=== PATIENT | female | born 1975 | race Caucasian/White ===

== ENCOUNTER 2017-05-16 19:07 | Observation (INO) | payer BC, OTHER ==
[~2017-05-16] VITALS: Ht 175.3 cm; Wt 93.0 kg
[2017-05-16 19:08] VITALS: BP 165/93; PULSE 88; RESP 16; TEMP 97.7; O2SAT 100
[2017-05-16] MEDS ORDERED: ZANT150T2 PO (20:38)
[2017-05-16] MEDS ORDERED: SODIUM CHLORIDE 0.9% FLUSH 10 ML FLUSH IVF PRN (20:45)
[2017-05-16 20:49] VITALS: BP 138/89; PULSE 60; RESP 18; O2SAT 99
--- NOTE | 2017-05-16 20:50 | PD ---
HPI Chief Complaint: Chest Pain Time Seen by Provider: 20:32 Travel History International Travel<30 days: No Contact w/Intl Traveler<30days: No Traveled to known affect area: No History of Present Illness HPI Patient is a 41-year-old female presenting to emergency for evaluation of chest pain. Patient states it has been intermittent for the last several months, normally occurring once or twice a week however for the last week or so it has been 3-4 times a day. She reports the pain lasts for 5 minutes at a time, radiates across her anterior chest wall and occasionally feels pressure-like, sometimes shooting in nature. Patient reports her pain is at 2 out of 10 currently. She also reports that this evening at approximately 630 she had pain that started in her shoulders, radiating up her neck and into her head causing a dull headache. This caused her to feel dizzy. She no longer feels dizzy, she denies any current shortness of breath, abdominal pain, nausea, vomiting, fever, chills. She does report a history of indigestion and has been taking [id number] antacids regularly. Patient denies any significant family history of cardiac disease. [facility] Past Medical History Medical History: Denies Significant Hx Tetanus Vaccination: Unknown Influenza Vaccination: No ?: Not LMP: 05/09/17 Past Surgical History Section: Yes Social History Alcohol Use: No Tobacco Use: No Substance Use: No Allergies-Medications (Allergen,Severity, Reaction): Coded Allergies: acetaminophen (Verified Allergy, Severe, 05/16/17) oxycodone (Verified Allergy, Severe, 05/16/17) Reported Meds & Prescriptions Reported Meds & Active Scripts Active Reported Zantac (Ranitidine HCl) 150 Mg Tab 150 Mg PO BID Review of Systems Except as stated in HPI: all other systems reviewed are Neg General / Constitutional: No: Fever, Chills Eyes: No: Blurred Vision HENT: Positive: Headaches, Neck Pain Cardiovascular: Positive: Chest Pain or Discomfort, No: Dyspnea on exertion, Edema Respiratory: No: Cough, Shortness of Breath Gastrointestinal: Positive: Indigestion, No: Nausea, Vomiting, Abdominal Pain Musculoskeletal: Positive: Myalgias Neurologic: No: Weakness, Dizziness, Focal Abnormalities Physical Exam Narrative GENERAL: Overweight, well-developed, alert female. Presenting in no acute distress. SKIN: Warm and dry. HEAD: Atraumatic. Normocephalic. EYES: Pupils equal and round. No scleral icterus. No injection or drainage. ENT: No nasal bleeding or discharge. Mucous membranes pink and moist. NECK: Trachea midline. No JVD. Tenderness to palpation paraspinal musculature and cervical region. No spinal tenderness or step-off noted. CARDIOVASCULAR: Regular rate and rhythm. RESPIRATORY: No accessory muscle use. Clear to auscultation. Breath sounds equal bilaterally. GASTROINTESTINAL: Abdomen soft, non-tender, nondistended. Hepatic and splenic margins not palpable. MUSCULOSKELETAL: Extremities without clubbing, cyanosis, or edema. No obvious deformities. NEUROLOGICAL: Awake and alert. No obvious cranial nerve deficits. Motor grossly within normal limits. Five out of 5 muscle strength in the arms and legs. Normal speech. PSYCHIATRIC: Appropriate mood and affect; insight and judgment normal. Data Data Last Documented VS Vital Signs Date Time Temp Pulse Resp B/P (MAP) Pulse Ox O2 Delivery O2 Flow Rate FiO2 05/16/17 21:21 98 Room Air 05/16/17 20:51 05/16/17 20:49 60 18 05/16/17 19:08 97.7 Orders Orders Electrocardiogram (05/16/17 20:39) Ckmb (Isoenzyme) Profile (05/16/17 20:39) Complete Blood Count With Diff (05/16/17 20:39) Comprehensive Metabolic Panel (05/16/17 20:39) Magnesium (Mg) (05/16/17 20:39) Prothrombin Time / Inr (Pt) (05/16/17 20:39) Act Partial Throm Time (Ptt) (05/16/17 20:39) Troponin I (05/16/17 20:39) Lipase (05/16/17 20:39) Chest, Single Ap (05/16/17 20:39) Ecg Monitoring (05/16/17 20:39) Bilateral Bp Monitoring (05/16/17 20:39) Iv Access Insert/Monitor (05/16/17 20:39) Oximetry (05/16/17 20:39) Oxygen Administration (05/16/17 20:39) Sodium Chloride 0.9% Flush (Ns Flush) (05/16/17 20:45) Pantoprazole Inj (Protonix Inj) (05/16/17 22:00) Al-Mag Hy-Si 40-40-4 Mg/Ml Liq (Mag-Al P (05/16/17 22:00) Lidocaine 2% Viscous (Xylocaine 2% Visco (05/16/17 22:00) Admit Order (Ed Use Only) (05/16/17 21:56) Activity Bed Rest With Brp (05/16/17 21:56) Vital Signs (Adult) Q4H (05/16/17 21:56) Cardiac Rhythm .As Directed (05/16/17 21:56) Notify Dr: Other .PRN (05/16/17 21:56) Notify Dr. Parameters (05/16/17 21:56) Resp Oxygen Nasal Cannula (05/16/17 ) Diet Npo (05/17/17 Breakfast) Ckmb (Isoenzyme) Profile (05/16/17 21:56) Ckmb (Isoenzyme) Profile (05/17/17 00:56) Troponin I (05/16/17 21:56) Troponin I (05/17/17 00:56) Electrocardiogram (05/16/17 21:56) Electrocardiogram (05/17/17 00:56) ^ Obtain (05/16/17 21:56) Ondansetron Inj (Zofran Inj) (05/16/17 22:00) Pantoprazole (Protonix) (05/17/17 09:00) Nitroglycerin Sl (Nitrostat Sl) (05/16/17 22:00) Hot Box Spotter / Telemetry RODOLFO.[id number] (05/16/17 21:56) Labs Laboratory Tests Test 05/16/17 21:00 White Blood Count 9.0 TH/MM3 Red Blood Count 4.80 MIL/MM3 Hemoglobin 10.2 GM/DL Hematocrit 31.6 % Mean Corpuscular Volume 65.8 FL Mean Corpuscular Hemoglobin 21.3 PG Mean Corpuscular Hemoglobin Concent 32.3 % Red Cell Distribution Width 15.0 % Platelet Count 297 TH/MM3 Mean Platelet Volume 7.6 FL Neutrophils (%) (Auto) 62.1 % Lymphocytes (%) (Auto) 26.6 % Monocytes (%) (Auto) 8.1 % Eosinophils (%) (Auto) 1.9 % Basophils (%) (Auto) 1.3 % Neutrophils # (Auto) 5.6 TH/MM3 Lymphocytes # (Auto) 2.4 TH/MM3 Monocytes # (Auto) 0.7 TH/MM3 Eosinophils # (Auto) 0.2 TH/MM3 Basophils # (Auto) 0.1 TH/MM3 CBC Comment DIFF FINAL Differential Comment Prothrombin Time 10.8 SEC Prothromb Time International Ratio 1.1 RATIO Activated Partial Thromboplast Time 24.9 SEC Blood Urea Nitrogen 12 MG/DL Creatinine 0.99 MG/DL Random Glucose 90 MG/DL Total Protein 7.6 GM/DL Albumin 3.9 GM/DL Calcium Level 9.6 MG/DL Magnesium Level 2.3 MG/DL Alkaline Phosphatase 96 U/L Aspartate Amino Transf (AST/SGOT) 11 U/L Alanine Aminotransferase (ALT/SGPT) 21 U/L Total Bilirubin 0.3 MG/DL Sodium Level 138 MEQ/L Potassium Level 4.2 MEQ/L Chloride Level 101 MEQ/L Carbon Dioxide Level 30.3 MEQ/L Anion Gap 7 MEQ/L Estimat Glomerular Filtration Rate 61 ML/MIN Total Creatine Kinase 67 U/L Troponin I LESS THAN 0.02 NG/ML Lipase 131 U/L MDM Medical Decision Making Medical Screen Exam Complete: Yes Emergency Medical Condition: Yes Interpretation(s) Vital Signs Date Time Temp Pulse Resp B/P (MAP) Pulse Ox O2 Delivery O2 Flow Rate FiO2 05/16/17 19:08 97.7 88 16 165/93 (117) 100 Room Air Differential Diagnosis acs vs usa vs gerd vs other Narrative Course Patient is a 41-year-old female presented to the emergency room for evaluation of chest pain which has been ongoing for several months however has been increasing in frequency for the last 2 weeks. Patient was slightly hypertensive on arrival, labs and imaging ordered and pending. Initial EKG shows sinus bradycardia with a rate of 57, this was reviewed by my attending physician. Labs reviewed, there are no acute abnormalities identified. Chest x -ray which is read by the radiologist shows no acute disease. Patient's symptoms may likely be GI in nature however a cardiac workup is reasonable. Patient is agreeable to observation status. Admit orders placed. Diagnosis Primary Impression: Chest pain Qualified Codes: R07.9 - Chest pain, unspecified Admitting Information Admitting Physician Requests: Observation Condition: Stable Julee Bermudez May 16, 2017 20:50
[2017-05-16 20:51] VITALS: O2SAT 99
--- NOTE | 2017-05-16 21:00 | RADRPT ---
EXAM DATE/TIME: 05/16/2017 20:48 [facility] COMPARISON: No previous studies available for comparison. INDICATIONS : Chest pain and shortness of breath. MEDICAL HISTORY : None. SURGICAL HISTORY : None. ENCOUNTER: Initial ACUITY: 1 month PAIN SCORE: 9/10 LOCATION: chest FINDINGS: A single view of the chest demonstrates the lungs to be symmetrically aerated without evidence of mas s, infiltrate or effusion. The cardiomediastinal contours are unremarkable. Osseous structures are intact. CONCLUSION: Normal examination for a patient of this age. Luis Holm MD on May 16, 2017 at 20:58 Board Certified Radiologist. This report was verified electronically.
[2017-05-16 21:29] LABS: AUTOMATED NEUTROPHIL # 5.6 TH/MM3 (1.8-7.7); BASOPHIL # 0.1 TH/MM3 (0-0.2); BASOPHIL % 1.3 % (0.0-2.0); EOSINOPHIL # 0.2 TH/MM3 (0-0.4); EOSINOPHIL % 1.9 % (0.0-4.0); HEMATOCRIT 31.6 % (35.0-46.0); HEMOGLOBIN 10.2 GM/DL (11.6-15.3); LYMPH % 26.6 % (9.0-44.0); LYMPHOCYTE # 2.4 TH/MM3 (1.0-4.8); MEAN CELL VOLUME 65.8 FL (80.0-100.0); MEAN CORPUSCULAR HEMOGLOBIN 21.3 PG (27.0-34.0); MEAN CORPUSCULAR HGB CONC 32.3 % (32.0-36.0); MEAN PLATELET VOLUME 7.6 FL (7.0-11.0); MONO % 8.1 % (0.0-8.0); MONOCYTE # 0.7 TH/MM3 (0-0.9); NEUT % 62.1 % (16.0-70.0); PLATELET COUNT 297 TH/MM3 (150-450)
[2017-05-16 21:33] LABS: INTERNATIONAL NORMALIZED RATIO 1.1 RATIO; PROTHROMBIN TIME - PATIENT 10.8 SEC (9.8-11.6)
[2017-05-16 21:43] LABS: ALBUMIN 3.9 GM/DL (3.4-5.0); AST (GOT) 11 U/L (15-37); BICARBONATE 30.3 MEQ/L (21.0-32.0); BLOOD UREA NITROGEN 12 MG/DL (7-18); CALCIUM 9.6 MG/DL (8.5-10.1); CHLORIDE 101 MEQ/L (98-107); CREATININE 0.99 MG/DL (0.50-1.00); GLOMERULAR FILTRATION RATE 61 ML/MIN (>89); GLUCOSE,RANDOM 90 MG/DL (74-106); MAGNESIUM 2.3 MG/DL (1.5-2.5); SODIUM (NA) 138 MEQ/L (136-145)
[2017-05-16 21:44] LABS: ALT (GPT) 21 U/L (10-53)
[2017-05-16 21:48] LABS: ALKALINE PHOSPHATASE 96 U/L (45-117); TOTAL BILIRUBIN ADULT 0.3 MG/DL (0.2-1.0); TOTAL PROTEIN 7.6 GM/DL (6.4-8.2); TROPONIN I LESS THAN 0.02 NG/ML (0.02-0.05)
[2017-05-16] MEDS ORDERED: LIDOCAINE VISCOUS 2% SOLN 15 ML UDC PO ONE (22:00)
[2017-05-16] MEDS ORDERED: ONDANSETRON HCL 4 MG/2 ML VIAL IV PUSH PRN (22:00)
[2017-05-16] MEDS ORDERED: ALUMINUM/MAGNESIUM/SIMETH 30 ML CUP PO ONE (22:00)
[2017-05-16] MEDS ORDERED: PANTOPRAZOLE SODIUM 40 MG VIAL IVP ONE (22:00)
[2017-05-16] MEDS ORDERED: NITROGLYCERIN 0.4 MG SL 25 TABS/BTL SL PRN (22:00)
[2017-05-16 22:14] VITALS: BP 159/80; PULSE 68; RESP 18; O2SAT 98
[2017-05-16 23:30] VITALS: PULSE 62
[2017-05-17] VITALS: BP 125/72; PULSE 67; RESP 20; TEMP 96.2; O2SAT 97
[2017-05-17 01:03] LABS: TROPONIN I LESS THAN 0.02 NG/ML (0.02-0.05)
[2017-05-17 04:00] LABS: TROPONIN I LESS THAN 0.02 NG/ML (0.02-0.05)
[2017-05-17] MEDS ORDERED: ONDANSETRON HCL 4 MG/2 ML VIAL IV PUSH PRN (07:45)
[2017-05-17 07:51] VITALS: BP 121/77; PULSE 57; RESP 18; TEMP 97.4; O2SAT 96
--- NOTE | 2017-05-17 08:48 | PD.CARD.PN ---
Subjective Subjective Remarks Patient seen and evaluated with nurse practitioner. 41-year-old lady complaining of months of epigastric and chest discomfort normally occurring 2 or 3 times a week recently increasing to 3 or 4 times a day. The pain is in the left upper chest normally stabbing but occasionally squeezing radiating to the mid sternum and on several occasions to the shoulder and neck. Severity has been as much as 8 out of 10, normally lasts for about 5 minutes, has no precipitating or relieving factors and no associated symptoms. She has a long history of indigestion which has not been evaluated. Objective Medications Current Medications Medications (Trade) Dose Ordered Sig/David Route Start Time Stop Time Status Last Admin (NS Flush) 2 ml UNSCH PRN IVF 05/16/17 20:45 (Protonix) 40 mg DAILY PO 05/17/17 09:00 (Nitrostat Sl) 0.4 mg Q5M PRN SL 05/16/17 22:00 (NS Flush) 2 ml BID IV FLUSH 05/17/17 09:00 (Zofran Inj) 4 mg Q6H PRN IV PUSH 05/17/17 07:45 (Aspirin) 325 mg DAILY PO 05/17/17 09:00 Vital Signs / I&O Vital Signs Date Time Temp Pulse Resp B/P (MAP) Pulse Ox O2 Delivery O2 Flow Rate FiO2 05/17/17 07:51 97.4 57 18 121/77 (92) 96 05/17/17 00:00 96.2 67 20 125/72 (89) 97 05/16/17 23:30 62 05/16/17 22:14 68 18 159/80 (106) 98 Room Air 05/16/17 21:21 98 Room Air 05/16/17 20:51 99 Room Air 05/16/17 20:49 60 18 138/89 (105) 99 Room Air 05/16/17 19:08 97.7 88 16 165/93 (117) 100 Room Air Physical Exam GENERAL: Mildly obese heavily tattooed young lady in no acute distress SKIN: Warm and dry. HEAD: Atraumatic. Normocephalic. EYES: Pupils equal and round. No scleral icterus. No injection or drainage. ENT: No nasal bleeding or discharge. Mucous membranes pink and moist. NECK: Trachea midline. No JVD. CARDIOVASCULAR: Regular rate and rhythm. RESPIRATORY: No accessory muscle use. Clear to auscultation. Breath sounds equal bilaterally. GASTROINTESTINAL: Abdomen soft, non-tender, nondistended. Hepatic and splenic margins not palpable. MUSCULOSKELETAL: Extremities without clubbing, cyanosis, or edema. No obvious deformities. NEUROLOGICAL: Awake and alert. No obvious cranial nerve deficits. Motor grossly within normal limits. Five out of 5 muscle strength in the arms and legs. Normal speech. PSYCHIATRIC: Appropriate mood and affect; insight and judgment normal. Laboratory Laboratory Tests Test 05/16/17 21:00 05/17/17 00:05 05/17/17 03:04 White Blood Count 9.0 TH/MM3 Red Blood Count 4.80 MIL/MM3 Hemoglobin 10.2 GM/DL Hematocrit 31.6 % Mean Corpuscular Volume 65.8 FL Mean Corpuscular Hemoglobin 21.3 PG Mean Corpuscular Hemoglobin Concent 32.3 % Red Cell Distribution Width 15.0 % Platelet Count 297 TH/MM3 Mean Platelet Volume 7.6 FL Neutrophils (%) (Auto) 62.1 % Lymphocytes (%) (Auto) 26.6 % Monocytes (%) (Auto) 8.1 % Eosinophils (%) (Auto) 1.9 % Basophils (%) (Auto) 1.3 % Neutrophils # (Auto) 5.6 TH/MM3 Lymphocytes # (Auto) 2.4 TH/MM3 Monocytes # (Auto) 0.7 TH/MM3 Eosinophils # (Auto) 0.2 TH/MM3 Basophils # (Auto) 0.1 TH/MM3 CBC Comment DIFF FINAL Differential Comment Prothrombin Time 10.8 SEC Prothromb Time International Ratio 1.1 RATIO Activated Partial Thromboplast Time 24.9 SEC Blood Urea Nitrogen 12 MG/DL Creatinine 0.99 MG/DL Random Glucose 90 MG/DL Total Protein 7.6 GM/DL Albumin 3.9 GM/DL Calcium Level 9.6 MG/DL Magnesium Level 2.3 MG/DL Alkaline Phosphatase 96 U/L Aspartate Amino Transf (AST/SGOT) 11 U/L Alanine Aminotransferase (ALT/SGPT) 21 U/L Total Bilirubin 0.3 MG/DL Sodium Level 138 MEQ/L Potassium Level 4.2 MEQ/L Chloride Level 101 MEQ/L Carbon Dioxide Level 30.3 MEQ/L Anion Gap 7 MEQ/L Estimat Glomerular Filtration Rate 61 ML/MIN Total Creatine Kinase 67 U/L 53 U/L 50 U/L Troponin I LESS THAN 0.02 NG/ML LESS THAN 0.02 NG/ML LESS THAN 0.02 NG/ML Lipase 131 U/L Imaging Last 24 hours Impressions Chest X-Ray 05/16/172038 Signed Impressions: Service Date/Time: Tuesday, May 16, 2017 20:48 - CONCLUSION: Normal examination for a patient of this age. Luis Holm MD Assessment and Plan Assessment and Plan Will use protocol to rule out ACS and consider ETT Discussed need for evaluation with general physician and GI. Av Willis MD May 17, 2017 08:48
[2017-05-17] MEDS ORDERED: PANTOPRAZOLE SOD 40 MG DELAYED RELEASE TAB PO SCH (09:00)
[2017-05-17] MEDS ORDERED: ASPIRIN 325 MG TAB PO SCH (09:00)
[2017-05-17] MEDS ORDERED: SODIUM CHLORIDE 0.9% FLUSH 10 ML FLUSH IV FLUSH SCH (09:00)
--- NOTE | 2017-05-17 09:52 | HHI.HP ---
HPI Primary Care Physician No Primary Care Physician Chief Complaint Chest pain History of Present Illness 41-year-old female with with no significant past cardiac history presents to emergency room for further evaluation of epigastric and chest discomfort. Onset last couple months. Endorses taking ranitidine twice a day and alternating with omeprazole daily. Location left anterior chest. Characterized as squeezing. Duration last a few minutes. No radiation. No associated symptoms of nausea or vomiting, dysuria, or diaphoresis. No known precipitating or relieving factors. Review of Systems General: No fatigue,weakness, fever, chills, or recent illness change in appetite. Has been at [facility]. HEENT: No [place]IL[place], no vision changes, no nasal congestion or drainage, no dysphasia CV: As stated above. No current chest pressure. No palpitations, intermittent leg pain, or dizziness RESP: No SOB, cough, wheeze, or recent URI. GI: Long-standing acid reflux issues, worsening over last couple months. No nausea, vomiting, bowel changes, diarrhea, constipation, pain, distention, melena, blood in the stool. No change in appetite, no unintentional weight gain or weight loss. 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 EXT: No lower leg edema, no paraesthesias MS: No discomfort or change in ROM NEURO: No change in memory, dizziness, difficulty with balance, LOC, motor/ sensory deficits PSYCH: No anxiety, depression, suicidal ideation SKIN: No rashes, no concerning lesions Past Family Social History Allergies: Coded Allergies: acetaminophen (Verified Allergy, Severe, 05/16/17) oxycodone (Verified Allergy, Severe, 05/16/17) Past Medical History None Past Surgical History Reported Medications Reported Meds & Active Scripts Active Reported Zantac (Ranitidine HCl) 150 Mg Tab 150 Mg PO BID Omeprazole 20 mg daily Alternating between Zantac and omeprazole Active Ordered Medications Current Medications Medications (Trade) Dose Ordered Sig/David Route Start Time Stop Time Status Last Admin (NS Flush) 2 ml UNSCH PRN IVF 05/16/17 20:45 (Protonix) 40 mg DAILY PO 05/17/17 09:00 (Nitrostat Sl) 0.4 mg Q5M PRN SL 05/16/17 22:00 (NS Flush) 2 ml BID IV FLUSH 05/17/17 09:00 (Zofran Inj) 4 mg Q6H PRN IV PUSH 05/17/17 07:45 (Aspirin) 325 mg DAILY PO 05/17/17 09:00 Social History No known hypertension, diabetes, or hyperlipidemia. Lifelong nonsmoker. Denies any alcohol or illegal drug use. . Endorses sedentary lifestyle. Past cardiac testing None Physical Exam Vital Signs Vital Signs Date Time Temp Pulse Resp B/P (MAP) Pulse Ox O2 Delivery O2 Flow Rate FiO2 05/17/17 07:51 97.4 57 18 121/77 (92) 96 05/17/17 00:00 96.2 67 20 125/72 (89) 97 05/16/17 23:30 62 05/16/17 22:14 68 18 159/80 (106) 98 Room Air 05/16/17 21:21 98 Room Air 05/16/17 20:51 99 Room Air 05/16/17 20:49 60 18 138/89 (105) 99 Room Air 05/16/17 19:08 97.7 88 16 165/93 (117) 100 Room Air Physical Exam GENERAL: Alert WN, WD, NAD, pleasant, overweight female HEAD: NC, AT CV: RRR, without murmur, rub, gallop, no JVD, S1-S2 no S3-S4. RESP: Clear lungs throughout bilateral, no crackles, wheeze, rhonchi, symmetrical chest rise, nonlabored, able to speak in full sentences ABD: Soft, NT, ND, no masses, positive bowel tones EXT: Pulses +24, no dependent edema MS: Normal tone 4 extremities, no obvious deformities, full range of motion NEURO: CN II through CN XII grossly intact, motor strength 5/5, gait WNL PSYCH: A+O 3, pleasant affect, appropriate speech, mood, insight and judgment SKIN: Normal turgor, normal texture, no lesions, no rashes, brisk cap refill, even hair distribution, multiple tattoos Laboratory Laboratory Tests Test 05/16/17 21:00 05/17/17 00:05 05/17/17 03:04 White Blood Count 9.0 Red Blood Count 4.80 Hemoglobin 10.2 Hematocrit 31.6 Mean Corpuscular Volume 65.8 Mean Corpuscular Hemoglobin 21.3 Mean Corpuscular Hemoglobin Concent 32.3 Red Cell Distribution Width 15.0 Platelet Count 297 Mean Platelet Volume 7.6 Neutrophils (%) (Auto) 62.1 Lymphocytes (%) (Auto) 26.6 Monocytes (%) (Auto) 8.1 Eosinophils (%) (Auto) 1.9 Basophils (%) (Auto) 1.3 Neutrophils # (Auto) 5.6 Lymphocytes # (Auto) 2.4 Monocytes # (Auto) 0.7 Eosinophils # (Auto) 0.2 Basophils # (Auto) 0.1 CBC Comment DIFF FINAL Differential Comment Prothrombin Time 10.8 Prothromb Time International Ratio 1.1 Activated Partial Thromboplast Time 24.9 Blood Urea Nitrogen 12 Creatinine 0.99 Random Glucose 90 Total Protein 7.6 Albumin 3.9 Calcium Level 9.6 Magnesium Level 2.3 Alkaline Phosphatase 96 Aspartate Amino Transf (AST/SGOT) 11 Alanine Aminotransferase (ALT/SGPT) 21 Total Bilirubin 0.3 Sodium Level 138 Potassium Level 4.2 Chloride Level 101 Carbon Dioxide Level 30.3 Anion Gap 7 Estimat Glomerular Filtration Rate 61 Total Creatine Kinase 67 53 50 Troponin I LESS THAN 0.02 LESS THAN 0.02 LESS THAN 0.02 Lipase 131 Result Diagram: 05/16/17209905/16/17 2100 Imaging Last 72 hours Impressions Chest X-Ray 05/16/172038 Signed Impressions: Service Date/Time: Tuesday, May 16, 2017 20:48 - CONCLUSION: Normal examination for a patient of this age. Luis Holm MD Course EKG NSR, normal axis, no st t segment changes, low voltage Caprini VTE Risk Assessment Caprini VTE Risk Assessment: No/Low Risk (score <= 1) Caprini Risk Assessment Model Point Value = 1 Point Value = 2 Point Value = 3 Point Value = 5 Age 41-60 Minor surgery BMI > 25 kg/m2 Swollen legs Varicose veins or History of unexplained or recurrent spontaneous Oral contraceptives or hormone replacement Sepsis (< 1 month) Serious lung disease, including pneumonia (< 1 month) Abnormal pulmonary function Acute myocardial infarction Congestive heart failure (< 1 month) History of inflammatory bowel disease Medical patient at bed rest Age 61-74 Arthroscopic surgery Major open surgery (> 45 min) Laparoscopic surgery (> 45 min) Malignancy Confined to bed (> 72 hours) Immobilizing plaster cast Central venous access Age >= 75 History of VTE Family history of VTE Factor V Leiden Prothrombin [id number] Lupus anticoagulant Anticardiolipin antibodies Elevated serum homocysteine Heparin-induced thrombocytopenia Other congenital or acquired thrombophilia Stroke (< 1 month) Elective arthroplasty Hip, pelvis, or leg fracture Acute spinal cord injury (< 1 month) Prophylaxis Regimen Total Risk Factor Score Risk Level Prophylaxis Regimen 0-1 Low Early ambulation 2 Moderate Order ONE of the following: *Sequential Compression Device (SCD) *Heparin 5000 units SQ BID 3-4 Higher Order ONE of the following medications: *Heparin 5000 units SQ TID *Enoxaparin/Lovenox 40 mg SQ daily (WT < 150 kg, CrCl > 30 mL/min) *Enoxaparin/Lovenox 30 mg SQ daily (WT < 150 kg, CrCl > 10-29 mL/min) *Enoxaparin/Lovenox 30 mg SQ BID (WT < 150 kg, CrCl > 30 mL/min) AND/OR *Sequential Compression Device (SCD) 5 or more Highest Order ONE of the following medications: *Heparin 5000 units SQ TID (Preferred with Epidurals) *Enoxaparin/Lovenox 40 mg SQ daily (WT < 150 kg, CrCl > 30 mL/min) *Enoxaparin/Lovenox 30 mg SQ daily (WT < 150 kg, CrCl > 10-29 mL/min) *Enoxaparin/Lovenox 30 mg SQ BID (WT < 150 kg, CrCl > 30 mL/min) AND *Sequential Compression Device (SCD) Assessment and Plan Assessment and Plan #1 Atypical chest pain-admitted to chest pain center. Ruled out with 3 sets of EKGs, cardiac enzymes, and monitored on telemetry overnight. Seen and evaluated by Dr. Av Willis. Chest discomfort likely GI in etiology, however will receive a exercise stress test for reassurance. Patient strongly encouraged and stressed importance of establishing with a primary care provider and most likely referral for GI physician. Patient verbalized understanding and agreeable to plan of care. #2 GERD-Protonix 40 mg by mouth daily Marilia Sosa May 17, 2017 09:52
[2017-05-17 12:54] VITALS: BP 125/80; PULSE 82; RESP 16; TEMP 97.8; O2SAT 97
--- NOTE | 2017-05-17 13:03 | RADRPT ---
EXAM DATE/TIME: 05/17/2017 11:29 [facility] COMPARISON: CHEST SINGLE AP, May 16, 2017, 20:48. INDICATIONS : Chest pain. Angina DOSE: 25.7 mCi Tc99m Myoview at stress 8.8 mCi Tc99m Myoview at rest REST HEART RATE: 106 BPM TARGET HEART RATE: 177 BPM MAX HEART RATE: 153 BPM REST BLOOD PRESSURE: 140/80 mmHg MAX BLOOD PRESSURE: 160/80 mmHg EJECTION FRACTION: > 70% MEDICAL HISTORY : None. SURGICAL HISTORY : section. Tubal ligation. ENCOUNTER: Initial ACUITY: 1 day PAIN SCALE: 2/10 LOCATION: Bilateral chest TECHNIQUE: The patient underwent upright treadmill exercise in the chest pain center. Continuous ECG tracing wa s monitored during stress. Gated SPECT imaging was performed after stress, and conventional SPECT im aging was performed at rest. The examination was performed on a SPECT/CT scanner, both attenuation-c orrected and non-corrected datasets were reviewed. FINDINGS: DISTRIBUTION: The maximum perfused segment at stress is in the anterior lateral wall. PERFUSION STUDY: The pattern of perfusion at stress is within normal limits. GATED STUDY: There is intact wall motion and thickening without hypokinetic or dyskinetic segments. CONCLUSION: Normal examination RISK CATEGORY: Low (<1% Annual Mortality Rate) Dagoberto Henao MD on May 17, 2017 at 12:59 Board Certified Radiologist. This report was verified electronically.
[2017-05-17] MEDS ORDERED: PANT40TA3 PO (13:26)
--- NOTE | 2017-05-17 13:26 | HHI.DCPOC ---
Discharge Care Plan Diagnosis: (1) Atypical chest pain (2) GERD (gastroesophageal reflux disease) Goals to Promote Your Health * To prevent worsening of your condition and complications * To maintain your health at the optimal level Directions to Meet Your Goals Take your medications as prescribed Follow your dietary instruction Follow activity as directed Keep your appointments as scheduled Take your immunizations and boosters as scheduled If your symptoms worsen call your PCP, if no PCP go to Urgent Care Center or Emergency Room Smoking is Dangerous to Your Health. Avoid second hand smoke Call the 24-hour hour crisis hotline for domestic abuse at Marilia Sosa May 17, 2017 13:26
[2017-05-17 15:47] VITALS: BP 129/81; PULSE 69; RESP 16; TEMP 97.6; O2SAT 98
--- NOTE | 2017-05-17 16:24 | EKG ---
Date Performed: 05/17/2017 Time Performed: 06:33:52 PTAGE: 41 years EKG: Sinus rhythm LOW QRS VOLTAGE IN PRECORDIAL LEADS BORDERLINE ECG NO SIG CHANGE PREVIOUS TRACING : 05/17/2017 02.37 DOCTOR: Av Willis Interpretating Date/Time 05/19/2017 07:28:00
--- NOTE | 2017-05-17 16:25 | EKG ---
Date Performed: 05/17/2017 Time Performed: 02:37:47 PTAGE: 41 years EKG: Sinus rhythm LOW QRS VOLTAGE IN PRECORDIAL LEADS BORDERLINE ECG NS STT CHANGES MORE PRONOUNCED PREVIOUS TRACING : 05/17/2017 02.37 DOCTOR: Av Willis Interpretating Date/Time 05/17/2017 16:24:07
--- NOTE | 2017-05-17 16:32 | TR ---
Date Performed: 05/17/2017 Time Performed: 09:30:08 DOCTOR: Av Willis DRUG LIST: CLINICAL HISTORY: CHEST PAIN REASON FOR TEST: Chest pain REASON FOR ENDING: OBSERVATION: CONCLUSION: Ranjith protocol completed. Stopped sec to exceeding target heart rate and leg fatigue . Maximum BU=052 Target HR Achieved=88.0% Maximum XO=766/82 Total Exercise Time=5:54. No reprod chest pain. No ectopy. Approx 1mm St depression inferior and lateral leads at peak. Normal bp response. Fa ir exercise tolerance. Recovery quick and unremarkable. COMMENTS:
--- NOTE | 2017-05-17 23:45 | EKG ---
Date Performed: 05/16/2017 Time Performed: 20:47:24 PTAGE: 41 years EKG: SINUS BRADYCARDIA LOW QRS VOLTAGE IN PRECORDIAL LEADS BORDERLINE ECG NO PREVIOUS TRACING DOCTOR: Dane Fermin Interpretating Date/Time 05/17/2017 23:44:32
--- NOTE | 2017-05-18 10:20 | TR ---
Date Performed: 05/17/2017 Time Performed: 12:05:44 DOCTOR: Av Willis DRUG LIST: CLINICAL HISTORY: CHEST PAIN CHEST PAIN REASON FOR TEST: Chest pain REASON FOR ENDING: OBSERVATION: CONCLUSION: Ranjith protocol completed. Stopped sec to reaching target heart rate and leg fatigue. Maximum XI=759 Target HR Achieved=86.0% Maximum FJ=025/80 Total Exercise Time=6:02. No reprod chest pain. No ectopy. 1mm st depression inferior and lateraly. Normal bp response. Good exercise tolerance . Recovery quick and unremarkable. Nuclear images pending. COMMENTS:
== END 2017-05-17 17:14 | disposition home or self-care (01) ==
LOC: NEPD 19:07 → NEDA 22:00 → NEPFCDU 23:00
PROVIDERS: ADMIT Internal Medicine Cardiovascular Disease; ATTEND Internal Medicine Cardiovascular Disease
DX: R07.89 Other chest pain (principal); K21.9 Gastro-esophageal reflux disease without esophagitis; R06.02 Shortness of breath; I20.9 Angina pectoris, unspecified; R51 Headache; R42 Dizziness and giddiness; K30 Functional dyspepsia; R00.1 Bradycardia, unspecified; E66.3 Overweight
CPT/HCPCS: 71045; 78452; 80053; 82550; 83690; 83735; 84484; 85025; 85610; 85730; 93005; 93017; 96374; 99285; A9502; C9113; G0378